=== PATIENT | male | born 1985 | race Caucasian/White ===

== ENCOUNTER 2019-03-22 10:01 | Emergency (ER) | payer SELFPAY ==
[~2019-03-22] VITALS: Ht 177.8 cm; Wt 86.6 kg
[2019-03-22 10:02] VITALS: BP 138/74
[2019-03-22] MEDS ORDERED: PRED10TA2 PO (10:36)
[2019-03-22] MEDS ORDERED: CIME300T91 PO (10:36)
[2019-03-22] MEDS ORDERED: CETIRIZINE (ZyrTEC) 10 MG TAB PO ONE (10:45)
[2019-03-22] MEDS ORDERED: predniSONE 10 MG TAB PO ONE ×2 (10:45)
[2019-03-22] MEDS ORDERED: predniSONE 10 MG TAB As Ordered ONE (10:48)
== END 2019-03-22 10:52 | disposition home or self-care (01) ==
LOC: M ED 10:01
DX: L24.7 Irritant contact dermatitis due to plants, except food (principal); L29.8 Other pruritus; Z87.891 Personal history of nicotine dependence; Z88.0 Allergy status to penicillin